=== PATIENT | female | born 1980 | race Caucasian/White ===

== ENCOUNTER → 2019-12-04 09:03 | Outpatient (BNVA) | payer OTHER, SELFPAY | PROVIDERS: Visit Provider Physician Assistant Medical | DX: B86 Scabies (principal) | CPT/HCPCS: 99202 ==

== ENCOUNTER 2021-05-26 14:53 | Emergency (ER) | payer SELFPAY ==
--- NOTE | ~2021-05-26 | XR_ITS ---
EXAMINATION: XR CHEST CLINICAL INFORMATION: Chest pain COMPARISON: None TECHNIQUE: Frontal view of the chest was obtained. FINDINGS: No significant abnormality is noted involving the heart, lungs, mediastinum, bony thorax or soft tissues. XR/XR chest 1V IMPRESSION: Unremarkable chest examination.
--- NOTE | 2021-05-26 15:00 | ECG_ITS ---
Test Reason : CHEST PAIN Blood Pressure : / mmHG Vent. Rate : 120 BPM Atrial Rate : 120 BPM P-R Int : 128 ms QRS Dur : 072 ms QT Int : 336 ms P-R-T Axes : 072 029 035 degrees QTc Int : 474 ms Sinus tachycardia Nonspecific ST-T changes Abnormal ECG No previous ECGs available Referred By: Generic ED Physician Electronically Signed By:Tj Doss
[2021-05-26 16:16] VITALS: BP 157/100; PULSE 102; RESP 27; TEMP 36.9; O2SAT 98; BMI 29.9
== END 2021-05-26 20:30 | disposition left against medical advice (07) ==
PROVIDERS: Emergency Provider Emergency Medicine
DX: R00.2 Palpitations (principal); R20.0 Anesthesia of skin; R42 Dizziness and giddiness
CPT/HCPCS: 71045; 93005; 99283